=== PATIENT | female | born 1980 | race Caucasian/White ===

== ENCOUNTER 2017-10-14 11:30 | Emergency (ER) | payer BC ==
[2017-10-14] MEDS: HYDROCODONE/APAP (5/325) TAB PO (12:07)
[2017-10-14] MEDS: LIDOCAINE 1% (MDV) 10 ML INJ INJ (13:55)
== END 2017-10-14 14:35 | disposition home or self-care (01) ==
LOC: FTE 11:30
DX: S61.301A Unspecified open wound of left index finger with damage to nail, initial encounter (principal); W23.0XXA Caught, crushed, jammed, or pinched between moving objects, initial encounter; Y92.9 Unspecified place or not applicable
CPT/HCPCS: 29130; 73140; 99283-25

== ENCOUNTER 2017-12-25 19:15 | Emergency (ER) | payer BC ==
[2017-12-25] MEDS: KETOROLAC 60 MG INJ IM (22:42)
[2017-12-25] MEDS: ACETAMINOPHEN 325 MG TAB PO (22:42)
[2017-12-25] MEDS: AMOXICILLIN 500 MG CAP PO (22:42)
== END 2017-12-25 23:35 | disposition home or self-care (01) ==
LOC: FTE 19:15
DX: J03.90 Acute tonsillitis, unspecified (principal)
CPT/HCPCS: 81025; 96372; 99284-25

== ENCOUNTER 2018-07-24 11:01 | Emergency (ER) | payer BC ==
[2018-07-24] MEDS: SOD CHLORIDE 0.9% 1,000 ML IV (15:56)
[2018-07-24] MEDS: METOCLOPRAMIDE 10 MG INJ IV (15:57)
[2018-07-24] MEDS: KETOROLAC 30 MG INJ IV (15:57)
[2018-07-24] MEDS: DIPHENHYDRAMINE 50 MG INJ IV (15:57)
== END 2018-07-24 17:48 | disposition home or self-care (01) ==
LOC: FTE 11:01
DX: R51 Headache (principal)
CPT/HCPCS: 81025; 96374; 96375; 99284-25